=== PATIENT | female | born 1995 | race Caucasian/White ===

== ENCOUNTER 2022-09-30 07:11 | Emergency (ER) | payer OTHER ==
[~2022-09-30] VITALS: Ht 152.4 cm; Wt 45.4 kg
--- NOTE | 2022-09-30 07:44 | NUR ---
seen and examined by MD Thomas
[2022-09-30] MEDS ORDERED: KETOROLAC TROMETHAMINE 15 MG INJ IVP ONE (08:00)
[2022-09-30] MEDS ORDERED: MORPHINE SULFATE 4 MG/1 ML DISP.SYRIN IV ONE (08:00)
[2022-09-30] MEDS ORDERED: IV NORMAL SALINE 1000 ML BAG IV ONE (08:00)
[2022-09-30] MEDS ORDERED: ONDANSETRON 4 MG/2 ML VIAL IV ONE (08:00)
[2022-09-30] MEDS ORDERED: ONDANSETRON 4 MG/2 ML VIAL ONE (08:03)
[2022-09-30] MEDS ORDERED: KETOROLAC TROMETHAMINE 15 MG INJ ONE (08:03)
[2022-09-30] MEDS ORDERED: MORPHINE SULFATE 4 MG/1 ML DISP.SYRIN ONE (08:04)
[2022-09-30 08:40] LABS: POTASSIUM 3.5 mmol/L (3.5-5.1)
[2022-09-30 08:44] LABS: HEMATOCRIT 41.7 % (31.2-41.9); MEAN CORPUSCULAR HEMOGLOBIN 30.8 uug (24.7-32.8); PLATELET COUNT (AUTO) 236 K/uL (179-408)
[2022-09-30 08:54] LABS: BILIRUBIN,DIRECT 0.2 mg/dL (0.0-0.2); BILIRUBIN,TOTAL 0.9 mg/dL (0.2-1.0); TOTAL PROTEIN, SERUM 7.5 g/dL (6.4-8.2)
--- NOTE | 2022-09-30 09:35 | NUR ---
Pt. is currently in bathroom and trying to provide a urine sample
--- NOTE | 2022-09-30 09:40 | NUR ---
urine sent to lab
[2022-09-30 09:57] LABS: *BILIRUBIN,URIN NEGATIVE (NEGATIVE); *BLOOD, URINE 3+ (NEGATIVE); *CLARITY,URINE CLEAR (CLEAR); *COLOR,URINE YELLOW (YELLOW); *KETONES,URINE TRACE (NEGATIVE); *UROBILINOGEN,URINE 0.2 E.U./dl (NORMAL); LEUKOCYTE ESTERASE ,URINE NEGATIVE (NEGATIVE); NITRITE, URINE NEGATIVE (NEGATIVE); PH,URINE 6.5 (5.0-8.0); UGLUCOSE NEGATIVE (NEGATIVE)
[2022-09-30 09:58] LABS: *URINE HCG, QUAL NEGATIVE (NEGATIVE)
--- NOTE | 2022-09-30 10:08 | NUR ---
pt. is stating " can I leave now" informed MD Thomas.
--- NOTE | 2022-09-30 10:19 | NUR ---
Patient discharged to home in stable condition. Written and verbal after care instructions given. Patient verbalizes understanding of instructions. Stressed follow up or return to ER for worsening s/s.
[2022-09-30 10:21] VITALS: BP 118/80
[2022-09-30] MEDS ORDERED: HYDR-4209 PO ×2 (10:23→10:27)
[2022-09-30] MEDS ORDERED: ONDA4TAB11 PO (10:23)
[2022-09-30 14:06] LABS: BACTERIA,URINE NONE SEEN /HPF (NONE SEEN); CALCIUM CARBONATE CRYSTALS,UR NONE SEEN /HPF (NONE SEEN); CALCIUM OXALATE CRYSTALS,UR NONE SEEN /HPF (NONE SEEN); CALCIUM PHOSPHATE CRYSTALS,UR NONE SEEN /HPF (NONE SEEN); COARSE GRANULAR CASTS,URINE NONE SEEN /LPF; CYSTINE CRYSTALS,URINE NONE SEEN /HPF (NONE SEEN); FATTY CASTS,URINE NONE SEEN /LPF (NONE SEEN); MUCUS,URINE NONE SEEN /LPF (0-FEW); RED BLOOD CELL CASTS,URINE NONE SEEN /LPF (NONE SEEN); SPERM,URINE NONE SEEN /HPF (NONE SEEN); SQUAMOUS EPITHELIAL CELL,UR FEW /HPF (NONE SEEN); TRICHOMONAS,URINE NONE SEEN /HPF (NONE SEEN); TRIPLE PHOSPHATE CRYSTAL,UR NONE SEEN /HPF (NONE SEEN); TYROSINE CRYSTAL,URINE NONE SEEN /HPF (NONE SEEN); URIC ACID CRYSTALS,URINE NONE SEEN /HPF (NONE SEEN); URINE AMORPHOUS PHOSPHATES NONE SEEN /HPF; URINE AMORPHOUS URATE NONE SEEN /HPF; WAXY CASTS,URINE NONE SEEN /LPF (NONE SEEN); WBC,URINE 0-3 /HPF (0-3); YEAST,URINE NONE SEEN /HPF (NONE SEEN)
== END 2022-09-30 10:30 | disposition home or self-care (01) ==
LOC: ER 07:11
DX: R10.9 Unspecified abdominal pain (principal); Z79.899 Other long term (current) drug therapy
CPT/HCPCS: 99285; 96374; 76770; 96375; 96361; 80076; 80048; 81001; 84703; 83690; 85025; 36415; J1885; J2405; J2270; A4663

== ENCOUNTER 2023-01-29 00:33 | Emergency (ER) | payer OTHER ==
[~2023-01-29] VITALS: Ht 152.4 cm; Wt 43.1 kg
[~2023-01-29 00:33] MED LIST: HYDR-4209 PO; ONDA4TAB11 PO
[2023-01-29 01:09] VITALS: BP 112/64; TEMP 97.8; O2SAT 97
== END 2023-01-29 01:10 | disposition home or self-care (01) ==
LOC: ER 00:35
DX: T19.2XXA Foreign body in vulva and vagina, initial encounter (principal); Z79.899 Other long term (current) drug therapy; X58.XXXA Exposure to other specified factors, initial encounter; Y93.89 Activity, other specified; Y92.89 Other specified places as the place of occurrence of the external cause; Y99.8 Other external cause status
CPT/HCPCS: A4663